=== PATIENT | female | born 1955 | race Caucasian/White ===

== ENCOUNTER → 2018-05-14 | Outpatient (CLI) | payer MEDICARE | END | disposition home or self-care (01) | LOC: KCIC MAMMO 12:14 | DX: Z12.31 Encounter for screening mammogram for malignant neoplasm of breast (principal) | CPT/HCPCS: 77063; 77067 ==

== ENCOUNTER → 2019-04-20 | Day surgery (SDC) | payer MEDICARE, OTHER ==
[~2019-04-20] MED LIST: AMLO10TA8 PO; BUSP15TA PO; CALC600T23 PO; CHOL10003 PO; CLON1TAB11 PO; DOCU100C28 PO; ESZO3TAB28 PO; FAMO40TA4 PO; IV RINGERS,LACTATED 1000ML 1,000 ML IV SCH; LAMO100T5 PO; LOSA100T14 PO; OMEP20CA10 PO; PROPOFOL 40 ML IV ONE
[2019-04-20 07:50] VITALS: BP 153/70
--- NOTE | 2019-04-21 16:06 | PATHOLOGY ---
[facility] Accession Number: [id number] . 01 Material submitted: . rectum - RECTAL POLYP . 01 Clinical history: . Hx colon polyps . 02 Diagnosis: Colorectal biopsy, rectal polyp: - Hyperplastic polyp. (JPM:riri; 04/21/2019) QMS/04/21/2019 . 02 Comment: There are no adenomatous changes or evidence of malignancy. . 02 Electronically signed: . Robert Hicks MD, Pathologist NPI- [id number] . 01 Gross description: . Received in formalin labeled "Clarissa Swain, rectal polyp," is a 0.5 x 0.4 x 0.4 cm polypoid piece of stock soft tissue. The margin is inked and the tissue is sectioned perpendicular to the margin and submitted in its entirely in cassette A1. (TSD; 04/20/2019) TOB/TOB . 02 Pathologist provided ICD-10: K62.1 . 02 CPT . 006146 Specimen Comment: A courtesy copy of this report has been sent to Specimen Comment: [phone], . Specimen Comment: Report sent to / DR SINGER Performed at: 01 [facility] [address], [place] [id number] MD Herrera Coffman MD Phone: [phone] Performed at: 02 [facility] [place] [address] [place], [place] [id number] MD Robert Hicks MD Phone: [phone]
== END | disposition home or self-care (01) ==
LOC: SURG 05:57
PROVIDERS: ATTEND Internal Medicine Gastroenterology
DX: Z12.11 Encounter for screening for malignant neoplasm of colon (principal); K62.1 Rectal polyp; K57.30 Diverticulosis of large intestine without perforation or abscess without bleeding; K64.0 First degree hemorrhoids; F41.9 Anxiety disorder, unspecified; K21.9 Gastro-esophageal reflux disease without esophagitis; I10 Essential (primary) hypertension; Z86.010 Personal history of colon polyps; Z80.0 Family history of malignant neoplasm of digestive organs; Z90.710 Acquired absence of both cervix and uterus; Z98.890 Other specified postprocedural states; Z98.51 Tubal ligation status
CPT/HCPCS: 45385; 88305; J2704; 45380

== ENCOUNTER → 2020-08-08 | Outpatient (CLI) | payer MEDICARE, OTHER ==
[2019-04-20 07:50] VITALS: BP 153/70
[~2020-08-08] MED LIST changes: -CLON1TAB11 PO; +CLONAZEPAM1 MG PO; -IV RINGERS,LACTATED 1000ML 1,000 ML IV SCH; -OMEP20CA10 PO; +OMEP20CA16 PO; -PROPOFOL 40 ML IV ONE
--- NOTE | 2020-08-08 15:41 | KCIC ---
Bilateral digital screening mammograms with 3-D tomosynthesis: Reason for examination: Routine screening. Comparison is made to previous studies dated back to 04/03/2016. Bilateral mammograms in CC and oblique projections were obtained with 2-D imaging and 3-D tomosynthesis imaging on a Siemens Inspiration unit and reviewed on the workstation. Interpretation was made with the benefit of CAD. The skin and nipples show no abnormalities. No abnormal axillary lymph nodes are seen. The breast parenchyma shows scattered fatty and fibroglandular density. (Breast density: Category B.) There continues to be some patchy asymmetry in the upper outer quadrant of the left breast which is unchanged. There continue to be small nodular parenchymal densities which are stable. There are no new dominant masses, suspicious calcifications or architectural distortion. Impression: No evidence of malignancy. Recommend routine screening. BI-RAD Category 2: Benign. "Our facility is accredited by the [employer] Mammography Program." This patient's information has been entered into a reminder system for the patient to be notified with the results of her examination and a target date for the next mammogram. Electronically signed by: Fabienne Sharma MD (08/08/2020 3:38 PM) [id number]
== END | disposition home or self-care (01) ==
LOC: KCIC MAMMO 12:35
PROVIDERS: ATTEND Family Medicine
DX: Z12.31 Encounter for screening mammogram for malignant neoplasm of breast (principal)
CPT/HCPCS: 77063; 77067

== ENCOUNTER 2020-12-02 07:43 | Inpatient (IN) | payer MEDICARE, OTHER ==
[~2020-12-02] VITALS: Ht 157.5 cm; Wt 53.5 kg
[~2020-12-02 07:43] MED LIST changes: +AMLO-187 PO; -AMLO10TA8 PO
--- NOTE | 2020-12-02 10:04 | RAD ---
EXAM: Head and cervical spine CT without contrast. HISTORY: Fall. Pain. TECHNIQUE: Computed tomographic images of the head and cervical spine were obtained without contrast. *One or more of the following individualized dose reduction techniques were utilized for this examina tion: 1. Automated exposure control. 2. Adjustment of the mA and/or kV according to patient size. 3. Use of iterative reconstruction technique. COMPARISON: None. FINDINGS: Head: There is an acute on subacute subdural hematoma along the right cerebral convexity measuring ap proximately 1.6 cm in maximum thickness. There is also hyperdensity within an increased left frontal extra-axial space which is greater than expected for a cortical vessel and likely due to a small acut e on chronic subdural hematoma measuring 7 mm in maximum thickness. There is no mass effect or midlin e shift. There is no hydrocephalus. There is encephalomalacia within the right frontal lobe likely due to chronic infarction or the seque la of remote hemorrhage. There are bilateral cerebral white matter changes, likely due to chronic sma ll vessel disease. There is cerebral volume loss. The orbits and visualized paranasal sinuses mastoid air cells are unremarkable. There is no calvarial lesion. Cervical spine: There is cervical kyphosis. There is no significant listhesis. There is multilevel en dplate remodeling. There is multilevel facet and uncovertebral arthropathy. No displaced fracture is seen. There is calcified atherosclerotic plaque within the carotid bifurcations. There is a dilated l eft internal jugular vein. There is pulmonary emphysema. The combination of degenerative changes resu lts in mild left foraminal stenosis at C3-C4, mild bilateral foraminal stenosis at C4-C5, mild bilate ral foraminal stenosis at C5-C6 and mild right foraminal stenosis at C6-C7. IMPRESSION: 1. Acute on subacute subdural hematoma along the right cerebral convexity measuring 1.6 cm and suspec kenn acute on chronic subdural hematoma along the anterior left cerebral convexity measuring 0.7 cm. T here is no mass effect or midline shift. 2. Encephalomalacia within the right frontal lobe likely due to chronic infarction or remote trauma. 3. Bilateral cerebral white matter changes, likely due to chronic small vessel disease. 4. Cerebral volume loss. 5. Multilevel degenerative change involving the cervical spine, described in detail above. There is n o evidence of acute cervical spine trauma. Findings were discussed with Dr. Carranza in the ED at 1000 hours on 12/02/2020. FOR INTERNAL CODING PURPOSES RESULT CODE: (C) Electronically signed by: Suellen Tamez MD (12/02/2020 10:02 AM) [facility]
--- NOTE | 2020-12-02 10:38 | PHYS DOC ---
Past Medical History Past Medical History: Schizophrenia Additional Past Medical Histor: encephalopathy, freq falls, post concussional syndrome, subdural hem, parki Past Surgical History: Other Additional Past Surgical Histo: unkown. Smoking Status: Never Smoker Alcohol Use: None General Adult EDM: Chief Complaint: MECHANICAL FALL HPI: HPI: Patient is a 65 year old female who has a history of frequent fall, history of subdural hematoma, wear protective helmet, did fall again this morning, hit the back of her head on the ground. Patient, headache neck pain. Patient denies any back pain, no hip pain, no abdominal pain, no extremity pain. EMS brought her here for evaluation from the shelter. Review of Systems: Review of Systems: Constitutional: Denies fever or chills. [] Eyes: Denies change in visual acuity. [] HENT: Denies nasal congestion or sore throat. [] Respiratory: Denies cough or shortness of breath. [] Cardiovascular: Denies chest pain or edema. [] GI: Denies abdominal pain, nausea, vomiting, bloody stools or diarrhea. [] : Denies dysuria. [] Musculoskeletal: Denies back pain or joint pain. [] Integument: Denies rash. [] Neurologic: Positive for headache, no focal weakness or numbness. Endocrine: Denies polyuria or polydipsia. [] Lymphatic: Denies swollen glands. [] Psychiatric: Denies depression or anxiety. [] Heart Score: Risk Factors: Risk Factors: DM, Current or recent (<one month) smoker, HTN, HLP, family history of CAD, obesity. Risk Scores: Score 0 - 3: 2.5% MACE over next 6 weeks - Discharge Home Score 4 - 6: 20.3% MACE over next 6 weeks - Admit for Clinical Observation Score 7 - 10: 72.7% MACE over next 6 weeks - Early Invasive Strategies Allergies: Allergies: Allergies Coded Allergies Type Severity Reaction Last Updated Verified No Known Drug Allergies 04/20/19 No Physical Exam: PE: Constitutional: Well developed, well nourished, no acute distress, non-toxic appearance. [] HENT: Normocephalic, small scalp hematoma on right occipital area, bilateral external ears normal, oropharynx moist, no oral exudates, nose normal. [] Eyes: PERRLA, EOMI, conjunctiva normal, no discharge. [] Neck: Normal range of motion, no tenderness, supple, no stridor. [] Cardiovascular:Heart rate regular rhythm, no murmur [] Lungs & Thorax: Bilateral breath sounds clear to auscultation [] Abdomen: Bowel sounds normal, soft, no tenderness, no masses, no pulsatile masses. [] Skin: Warm, dry, no erythema, no rash. [] Back: No tenderness, no CVA tenderness. [] Extremities: No tenderness, no cyanosis, no clubbing, ROM intact, no edema. [] Neurologic: Alert and oriented X 3, normal motor function, normal sensory function, no focal deficits noted. [] Psychologic: Affect normal, judgement normal, mood normal. [] Current Patient Data: Labs: Laboratory Tests Test 12/02/20 11:15 12/02/20 12:43 White Blood Count 8.7 x10^3/uL Red Blood Count 4.33 x10^6/uL Hemoglobin 12.8 g/dL Hematocrit 38.4 % Mean Corpuscular Volume 89 fL Mean Corpuscular Hemoglobin 30 pg Mean Corpuscular Hemoglobin Concent 33 g/dL Red Cell Distribution Width 16.3 % Platelet Count 420 x10^3/uL Neutrophils (%) (Auto) 59 % Lymphocytes (%) (Auto) 31 % Monocytes (%) (Auto) 7 % Eosinophils (%) (Auto) 1 % Basophils (%) (Auto) 1 % Neutrophils # (Auto) 5.2 x10^3/uL Lymphocytes # (Auto) 2.7 x10^3/uL Monocytes # (Auto) 0.6 x10^3/uL Eosinophils # (Auto) 0.1 x10^3/uL Basophils # (Auto) 0.1 x10^3/uL Sodium Level 141 mmol/L Potassium Level 3.6 mmol/L Chloride Level 105 mmol/L Carbon Dioxide Level 27 mmol/L Anion Gap 9 Blood Urea Nitrogen 9 mg/dL Creatinine 1.0 mg/dL Estimated GFR (Cockcroft-Gault) 55.5 BUN/Creatinine Ratio 9 Glucose Level 101 mg/dL Calcium Level 9.5 mg/dL Total Bilirubin 0.4 mg/dL Aspartate Amino Transf (AST/SGOT) 23 U/L Alanine Aminotransferase (ALT/SGPT) 26 U/L Alkaline Phosphatase 77 U/L Total Protein 7.5 g/dL Albumin 3.5 g/dL Albumin/Globulin Ratio 0.9 Urine Collection Type Unknown Urine Color Yellow Urine Clarity Clear Urine pH 7.5 Urine Specific [place] <=1.005 Urine Protein Negative mg/dL Urine Glucose (UA) Negative mg/dL Urine Ketones (Stick) Negative mg/dL Urine Blood Negative Urine Nitrite Negative Urine Bilirubin Negative Urine Urobilinogen Dipstick 0.2 mg/dL Urine Leukocyte Esterase Trace Urine RBC 1-2 /HPF Urine WBC 1-4 /HPF Urine Squamous Epithelial Cells Few /LPF Urine Bacteria 0 /HPF Vital Signs: Vital Signs Date Time Temp Pulse Resp B/P (MAP) Pulse Ox O2 Delivery O2 Flow Rate FiO2 12/02/20 08:59 98.9 70 16 155/72 (99) 95 Room Air 98.9 EKG: EKG: [] Radiology/Procedures: Radiology/Procedures: [] [address] [place] [address] IMAGING REPORT Signed PATIENT: CARLTON LUGO ACCOUNT: [id number] : 1955 LOCATION: ER AGE: 65 SEX: F EXAM STATUS: REG ER ORD. PHYSICIAN: DARCI GARCIA DO REASON: fell, head injury PROCEDURE: CT HEAD AND CERVICAL SPINE WO EXAM: Head and cervical spine CT without contrast. HISTORY: Fall. Pain. TECHNIQUE: Computed tomographic images of the head and cervical spine were obtained without contrast. *One or more of the following individualized dose reduction techniques were utilized for this examination: 1. Automated exposure control. 2. Adjustment of the mA and/or kV according to patient size. 3. Use of iterative reconstruction technique. COMPARISON: None. FINDINGS: Head: There is an acute on subacute subdural hematoma along the right cerebral convexity measuring approximately 1.6 cm in maximum thickness. There is also hyperdensity within an increased left frontal extra-axial space which is greater than expected for a cortical vessel and likely due to a small acute on chronic subdural hematoma measuring 7 mm in maximum thickness. There is no mass effect or midline shift. There is no hydrocephalus. There is encephalomalacia within the right frontal lobe likely due to chronic infarction or the sequela of remote hemorrhage. There are bilateral cerebral white matter changes, likely due to chronic small vessel disease. There is cerebral volume loss. The orbits and visualized paranasal sinuses mastoid air cells are unremarkable. There is no calvarial lesion. Cervical spine: There is cervical kyphosis. There is no significant listhesis. There is multilevel endplate remodeling. There is multilevel facet and uncovertebral arthropathy. No displaced fracture is seen. There is calcified atherosclerotic plaque within the carotid bifurcations. There is a dilated left internal jugular vein. There is pulmonary emphysema. The combination of degenerative changes results in mild left foraminal stenosis at C3-C4, mild bilateral foraminal stenosis at C4-C5, mild bilateral foraminal stenosis at C5- C6 and mild right foraminal stenosis at C6-C7. IMPRESSION: 1. Acute on subacute subdural hematoma along the right cerebral convexity measuring 1.6 cm and suspected acute on chronic subdural hematoma along the anterior left cerebral convexity measuring 0.7 cm. There is no mass effect or midline shift. 2. Encephalomalacia within the right frontal lobe likely due to chronic infarction or remote trauma. 3. Bilateral cerebral white matter changes, likely due to chronic small vessel disease. 4. Cerebral volume loss. 5. Multilevel degenerative change involving the cervical spine, described in detail above. There is no evidence of acute cervical spine trauma. Findings were discussed with Dr. Garcia in the ED at 1000 hours on 12/02/2020. FOR INTERNAL CODING PURPOSES RESULT CODE: (C) Electronically signed by: Suellen Hay MD (12/02/2020 10:02 AM) [facility] DICTATED and SIGNED BY: SUELLEN HAY MD DATE: 12/02/20 [id number] 0 Course & Med Decision Making: Course & Med Decision Making Pertinent Labs and Imaging studies reviewed. (See chart for details) Patient is a 65-year-old female with a history of frequent fall, she fell again today, was brought here by EMS from shelter. CT scan of the head and C- spine show acute subdural hematoma on chronic subdural hematoma, consulted Dr. Odin Almeida, neurosurgeon who recommended to admit patient to ICU, CT scan her head tomorrow. Dragon Disclaimer: Dragon Disclaimer: This electronic medical record was generated, in whole or in part, using a voice recognition dictation system. Departure Departure Impression: Primary Impression: Subdural hematoma Additional Impression: Frequent falls Disposition: 09 ADMITTED INPT THIS HOSP Admitting Physician: NERIS (Dr. Hernandez) Condition: STABLE Referrals: MIKE HERRERA (PCP) DARCI GARCIA DO Dec 02, 2020 10:38
[2020-12-02 11:25] LABS: BASO # 0.1 x10^3/uL (0.0-0.2); BASO % 1 % (0-3); EOS # 0.1 x10^3/uL (0.0-0.7); EOS % 1 % (0-3); HEMATOCRIT 38.4 % (36.0-47.0); HEMOGLOBIN 12.8 g/dL (12.0-15.5); LYMPH # 2.7 x10^3/uL (1.0-4.8); LYMPH % 31 % (24-48); MEAN CORPUSCULAR HEMOGLOBIN 30 pg (25-35); MEAN CORPUSCULAR HGB CONC 33 g/dL (31-37); MEAN CORPUSCULAR VOLUME 89 fL (79-100); MONO # 0.6 x10^3/uL (0.0-1.1); MONO % 7 % (0-9); NEUT # 5.2 x10^3/uL (1.8-7.7); NEUT % 59 % (31-73); PLATELET COUNT 420 x10^3/uL (140-400); RED BLOOD COUNT 4.33 x10^6/uL (3.50-5.40); RED CELL DISTRIBUTION WIDTH 16.3 % (11.5-14.5); WHITE BLOOD COUNT 8.7 x10^3/uL (4.0-11.0)
[2020-12-02 11:38] LABS: CALCIUM 9.5 mg/dL (8.5-10.1); GFR 55.5; POTASSIUM 3.6 mmol/L (3.5-5.1)
[2020-12-02 11:43] LABS: ALBUMIN 3.5 g/dL (3.4-5.0); ALBUMIN/GLOBULIN RATIO 0.9 (1.0-1.7); TOTAL BILIRUBIN 0.4 mg/dL (0.2-1.0); TOTAL PROTEIN 7.5 g/dL (6.4-8.2)
--- NOTE | 2020-12-02 12:07 | HP ---
ADMIT DATE: 12/02/2020 CHIEF COMPLAINT: Fall. HISTORY OF PRESENT ILLNESS: The patient is a pleasant 65-year-old female who wears a protective helmet, I believe she has schizophrenia and previous history of postconcussion syndrome and previous subdural hematoma. Once again, she fell and now has a little bit of a headache. We did some imaging. She does have a small subdural hematoma. We have consulted Dr. Almeida. He would like her to go to the ICU and they are going to rescan her tomorrow. PAST MEDICAL HISTORY: Schizophrenia, encephalopathy, frequent falls, postconcussion syndrome, subdural hematoma, Parkinson's. ALLERGIES: None. FAMILY HISTORY: Parkinson's. SOCIAL HISTORY: She does not drink, smoke or take drugs. MEDICATIONS: Reviewed, please refer to the MRAD. REVIEW OF SYSTEMS: GENERAL: No history of weight change, weakness or fevers. SKIN: No bruising, hair changes or rashes. EYES: No blurred, double or loss of vision. NOSE AND THROAT: No history of nosebleeds, hoarseness or sore throat. HEART: No history of palpitations, chest pain or shortness of breath on exertion. LUNGS: Denies cough, hemoptysis, wheezing or shortness of breath. GASTROINTESTINAL: Denies changes in appetite, nausea, vomiting, diarrhea or constipation. GENITOURINARY: No history of frequency, urgency, hesitancy or nocturia. NEUROLOGIC: Denies history of numbness, tingling, tremor or weakness. PSYCHIATRIC: No history of panic, anxiety or depression. ENDOCRINE: No history of heat or cold intolerance, polyuria or polydipsia. EXTREMITIES: Denies muscle weakness, joint pain, pain on walking or stiffness. PHYSICAL EXAMINATION: VITALS: Within normal limits and are stable. GENERAL: No apparent distress. Alert and oriented. HEENT: She has a slight bump on the right side of her head. EYES: Extraocular muscles are intact, pupils are equally round and reactive to light and accommodation MUSCULOSKELETAL: Well developed, well nourished, good range of motion ENDOCRINE: No thyromegaly was palpated LYMPHATICS: No cervical chain or axillary nodes were noted HEMATOPOIETIC: No bruising NECK: Supple, no JVD, no thyromegaly was noted. LUNGS: Clear to auscultation in all lung manning without rhonchi or wheezing. HEART: RRR, S1, S2 present. Peripheral pulses intact, no obvious murmurs were noted. ABDOMEN: Soft, nontender. Positive bowel sounds no organomegaly, normal bowel sounds. EXTREMITIES: Without any cyanosis, clubbing, or edema. Pedal pulses intact, Homans sign is negative. NEUROLOGIC: Normal speech, normal tone. A and O x3, moves all extremities, no obvious focal deficits. PSYCHIATRIC: Normal affect, normal mood. Stable. SKIN: No ulcerations or rashes, good skin turgor, no jaundice. VASCULAR: Good capillary refill, neurovascular bundle appears to be intact. LABORATORY DATA: Normal. Electrolytes are normal. CT of the head shows an acute on subacute subdural hematoma, it is about 1.6 cm on the right cerebral convexity. ASSESSMENT AND PLAN: Falls and subdural hematoma. The patient will be admitted to the ICU. Neuro checks, home meds, DVT prophylaxis, full code. Consult Dr. Almeida. He is going to see the patient this evening, probably repeat her CT in a day or two. WIMLER SPEAR DO DR: HOMAR/sharon JOB#: [id number] / [id number]
[2020-12-02 12:53] LABS: BILIRUBIN,URINE NEGATIVE (NEG); CLARITY,URINE CLEAR; COLOR,URINE YELLOW; NITRITE,URINE NEGATIVE (NEG); PH,URINE 7.5 (<5.0-8.0); PROTEIN,URINE NEGATIVE (NEG-TRACE); UROBILINOGEN,URINE 0.2 mg/dL (0.2 mg/dL)
[2020-12-02 13:02] LABS: BACTERIA,URINE 0 /HPF (0-FEW)
[2020-12-02] MEDS ORDERED: AMLO-186 PO (18:34)
[2020-12-02] MEDS ORDERED: BENZ1TAB5 PO (18:34)
[2020-12-02] MEDS ORDERED: ACET325T21 PO (18:34)
[2020-12-02] MEDS ORDERED: LEVO25TA4 PO (18:34)
[2020-12-02] MEDS ORDERED: ATOR40TA59 PO (18:34)
[2020-12-02] MEDS ORDERED: MELA3TAB4 PO (18:34)
[2020-12-02] MEDS ORDERED: ONDA-84 PO (18:34)
[2020-12-02] MEDS ORDERED: TRAZ-118 PO (18:34)
[2020-12-02] MEDS ORDERED: FLUO20CA20 PO (18:34)
[2020-12-02] MEDS ORDERED: POLY17PO29 PO (18:34)
--- NOTE | 2020-12-02 22:00 | NUR ---
Patient arrived to CVICU from the ED-Hold to room 266. Report received from DANICA Torres from the ED. No fluids infusing. Answers questions but can be inappropriate but can follow commands and easily directed. VSS. Denies pain. Helmet remained in place. Spastic movements. Gait belt available. Will continue to monitor.
[2020-12-03] VITALS (18 sets, daily range): BP systolic 114–185; BP diastolic 64–93
--- NOTE | 2020-12-03 08:14 | PDOC ---
[employer] PROGRESS NOTE Date of Service DOS: DATE: 12/03/20 TIME: 08:09 Chief Complaint Chief Complaint A/P: Acute on subacute subdural hematoma - right cerebral convexity measuring 1.6 cm and subdural hematoma anterior left cerebral convexity measuring 0.7 cm. no mass effect History of Present Illness History of Present Illness Ms Swain is a 65yo F fpc resident of [facility] w/ PMHx Schizophrenia, frequent falls, post concussion syndrome who presents on 12/02/2020 after a fall and worsening confusion. Oriented to person at baseline. She does wear a protective helmet due to her frequency of falls. CT head revealed acute 1.6cm right SDH and left SDH as well. Admitted to ICU for further care. Repeat CT head stable. She is still wearing a helmet. She knows her date of has responded to myself and nursing staff with different first names. No shortness of breath or cough no chest pain. Vitals/I&O Vitals/I&O: Vital Signs Date Time Temp Pulse Resp B/P (MAP) Pulse Ox O2 Delivery O2 Flow Rate FiO2 12/03/20 07:30 98.1 72 20 185/76 (112) 97 Room Air 98.1 I & O 12/02/20 12/02/20 12/03/20 15:00 23:00 07:00 Intake Total 200 ml Balance 200 ml Labs Labs: Laboratory Tests Test 12/02/20 11:15 12/02/20 12:43 White Blood Count 8.7 x10^3/uL (4.0-11.0) Red Blood Count 4.33 x10^6/uL (3.50-5.40) Hemoglobin 12.8 g/dL (12.0-15.5) Hematocrit 38.4 % (36.0-47.0) Mean Corpuscular Volume 89 fL (79-100) Mean Corpuscular Hemoglobin 30 pg (25-35) Mean Corpuscular Hemoglobin Concent 33 g/dL (31-37) Red Cell Distribution Width 16.3 % (11.5-14.5) Platelet Count 420 x10^3/uL (140-400) Neutrophils (%) (Auto) 59 % (31-73) Lymphocytes (%) (Auto) 31 % (24-48) Monocytes (%) (Auto) 7 % (0-9) Eosinophils (%) (Auto) 1 % (0-3) Basophils (%) (Auto) 1 % (0-3) Neutrophils # (Auto) 5.2 x10^3/uL (1.8-7.7) Lymphocytes # (Auto) 2.7 x10^3/uL (1.0-4.8) Monocytes # (Auto) 0.6 x10^3/uL (0.0-1.1) Eosinophils # (Auto) 0.1 x10^3/uL (0.0-0.7) Basophils # (Auto) 0.1 x10^3/uL (0.0-0.2) Sodium Level 141 mmol/L (136-145) Potassium Level 3.6 mmol/L (3.5-5.1) Chloride Level 105 mmol/L (98-107) Carbon Dioxide Level 27 mmol/L (21-32) Anion Gap 9 (6-14) Blood Urea Nitrogen 9 mg/dL (7-20) Creatinine 1.0 mg/dL (0.6-1.0) Estimated GFR (Cockcroft-Gault) 55.5 BUN/Creatinine Ratio 9 (6-20) Glucose Level 101 mg/dL (70-99) Calcium Level 9.5 mg/dL (8.5-10.1) Total Bilirubin 0.4 mg/dL (0.2-1.0) Aspartate Amino Transf (AST/SGOT) 23 U/L (15-37) Alanine Aminotransferase (ALT/SGPT) 26 U/L (14-59) Alkaline Phosphatase 77 U/L (46-116) Total Protein 7.5 g/dL (6.4-8.2) Albumin 3.5 g/dL (3.4-5.0) Albumin/Globulin Ratio 0.9 (1.0-1.7) Urine Collection Type Unknown Urine Color Yellow Urine Clarity Clear Urine pH 7.5 (<5.0-8.0) Urine Specific [place] <=1.005 (1.000-1.030) Urine Protein Negative mg/dL (NEG-TRACE) Urine Glucose (UA) Negative mg/dL (NEG) Urine Ketones (Stick) Negative mg/dL (NEG) Urine Blood Negative (NEG) Urine Nitrite Negative (NEG) Urine Bilirubin Negative (NEG) Urine Urobilinogen Dipstick 0.2 mg/dL (0.2 mg/dL) Urine Leukocyte Esterase Trace (NEG) Urine RBC 1-2 /HPF (0-2) Urine WBC 1-4 /HPF (0-4) Urine Squamous Epithelial Cells Few /LPF Urine Bacteria 0 /HPF (0-FEW) Assessment and Plan Assessmemt and Plan Problems Medical Problems: (1) Frequent falls Status: Acute (2) Subdural hematoma Status: Acute Comment Review of Relevant I have reviewed the following items junaid (where applicable) has been applied. Justifications for Admission Other Justification KITTY AMARO MD Dec 03, 2020 08:14
--- NOTE | 2020-12-03 09:16 | RAD ---
EXAM: Head CT without contrast. HISTORY: Subdural hematoma follow-up. TECHNIQUE: Computed tomographic images of the head were obtained without contrast. *One or more of the following individualized dose reduction techniques were utilized for this examina tion: 1. Automated exposure control. 2. Adjustment of the mA and/or kV according to patient size. 3. Use of iterative reconstruction technique. COMPARISON: 12/02/2020. FINDINGS: There has been no significant change in the size or attenuation of a suspected mixed acute on subacute subdural hematoma along the right cerebral convexity measuring 1.6 cm in maximum thicknes s. There is linear hyperdensity within increased left frontal extra-axial space which is not typical in appearance for a cortical vessel and likely due to a stable acute on chronic subdural hematoma farhad suring 0.6 mm in thickness. There is no mass effect or midline shift. There is no hydrocephalus. There is encephalomalacia within the anterior inferior right frontal lobe and right temporal lobe lik allie due to the sequela of remote trauma, or less likely, chronic infarction. There are scattered area s of hypodensity within the cerebral white matter, likely due to chronic small vessel disease. There is volume loss. The orbits and visualized paranasal sinuses mastoid air cells are unremarkable. IMPRESSION: 1. No significant change in a suspected acute on subacute subdural hematoma along the right cerebral convexity measuring 1.6 cm and suspected small acute on chronic subdural hematoma along the left cere bral convexity measuring 0.6 mm. There is no mass effect or midline shift. 2. Encephalomalacia within the right frontal and temporal lobes, the distribution of which favors virgilio nges due to remote trauma. The possibility of changes due to chronic infarction is not completely exc luded. 3. Bilateral cerebral white matter changes, likely due to chronic small vessel disease. 4. Cerebral volume loss. Electronically signed by: Suellen Tamez MD (12/03/2020 9:13 AM) [id number]
[2020-12-03] MEDS ORDERED: ONDANSETRON ODT 4 MG TAB.RAPDIS. PO PRN (11:15)
[2020-12-03] MEDS ORDERED: POLYETHYLENE GLYCOL 3350 17 GM PACKET. PO PRN (11:15)
[2020-12-03] MEDS ORDERED: ACETAMINOPHEN 325 MG TABLET. PO PRN (11:15)
[2020-12-03] MEDS: DOCUSATE SODIUM 100 MG CAPSULE. PO SCH (12:31)
[2020-12-03] MEDS: LEVOTHYROXINE 25 MCG TABLET. PO SCH (12:31)
[2020-12-03] MEDS: FLUoxetine HCL 20 MG CAPSULE PO SCH (12:31)
[2020-12-03] MEDS: lamoTRIgine 100 MG TABLET. PO SCH (12:31)
[2020-12-03] MEDS: PANTOPRAZOLE 40 MG TABLET.DR. PO SCH (12:31)
[2020-12-03] MEDS: BENZTROPINE MESYLATE 1 MG TABLET. PO SCH (12:32)
--- NOTE | 2020-12-03 14:27 | NUR ---
SS following for discharge planning. SS reviewed pt chart and discussed with pt RN. Pt is skilled rehabilitation resident from [facility], ; fax [phone]. Pt is currently on room air. COVID19 test pending. PT/OT ordered. Pt is able to return skilled when medically ready. SS will continue to follow for discharge planning.
--- NOTE | 2020-12-03 14:31 | PDOC ---
Provider Note Date of Service: DATE: 12/03/20 TIME: 14:28 Provider Note patient seen and examined history of frequent falls confused on exam, follows commands, BURK denies pain CT with acute on subacute subdural hematoma along the right cerebral convexity measuring 1.6 cm and suspected small acute on chronic subdural hematoma along the left cerebral convexity measuring 0.6 mm. There is no mass effect or midline shift we will make arrangements for follow up CT in a week D/W RN Justifications for Admission Other Justification DILLON VALLES MD Dec 03, 2020 14:31
[2020-12-03] MEDS: ATORVASTATIN CALCIUM 40 MG TABLET. PO SCH (21:20)
[2020-12-03] MEDS: traZODone 50 MG TABLET. PO SCH (21:20)
[2020-12-03] MEDS: PSYLLIUM HUSK (SUGAR FREE) 1 PKT PACKET PO SCH (21:20)
[2020-12-04] MEDS: LEVOTHYROXINE 25 MCG TABLET. PO SCH (06:25)
[2020-12-04] MEDS: PANTOPRAZOLE 40 MG TABLET.DR. PO SCH (07:30)
--- NOTE | 2020-12-04 07:54 | PDOC ---
[employer] PROGRESS NOTE Date of Service DOS: DATE: 12/04/20 TIME: 07:54 Chief Complaint Chief Complaint A/P: Acute on subacute subdural hematoma - right cerebral convexity measuring 1.6 cm and subdural hematoma anterior left cerebral convexity measuring 0.7 cm. 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 Oriented to person at baseline. She does wear a protective helmet due to her frequency of falls. CT head revealed acute 1.6cm right SDH and left SDH as well. Admitted to ICU for further care. 12/03: Repeat CT head stable. She is still wearing a helmet. She knows her date of has responded to myself and nursing staff with different first names. No shortness of breath or cough no chest pain. In good spirits. Wearing her helmet. Afebrile no shortness of breath or chest pain. Oriented to person. Vitals/I&O Vitals/I&O: Vital Signs Date Time Temp Pulse Resp B/P (MAP) Pulse Ox O2 Delivery O2 Flow Rate FiO2 12/04/20 03:00 56 16 Room Air 12/03/20 23:00 98.2 159/85 (109) 96 98.2 I & O 12/03/20 12/03/20 12/04/20 15:00 23:00 07:00 Intake Total 200 ml 300 ml 180 ml Output Total 125 ml Balance 200 ml 300 ml 55 ml Physical Exam General: Alert, Oriented X3, Cooperative Heart: Regular rate, Normal S1, Normal S2 Lungs: Clear Abdomen: Normal bowel sounds, Soft Extremities: No clubbing, No cyanosis Skin: No rashes, No breakdown Assessment and Plan Assessmemt and Plan Problems Medical Problems: (1) Frequent falls Status: Acute (2) Subdural hematoma Status: Acute Comment Review of Relevant I have reviewed the following items junaid (where applicable) has been applied. Medications: Current Medications Medications (Trade) Dose Ordered Sig/Win Route PRN Reason Start Time Stop Time Status Last Admin Dose Admin Amlodipine Besylate (Norvasc) 5 mg DAILY PO 12/03/20 12:00 12/03/20 12:31 Atorvastatin Calcium (Lipitor) 40 mg HS PO 12/03/20 21:00 12/03/20 21:20 Benztropine Mesylate (Cogentin) 1 mg DAILY PO 12/03/20 12:00 12/03/20 12:32 Docusate Sodium (Colace) 100 mg DAILY PO 12/03/20 12:00 12/03/20 12:31 Fluoxetine HCl (PROzac) 20 mg DAILY PO 12/03/20 12:00 12/03/20 12:31 Lamotrigine (LaMICtal) 300 mg DAILY PO 12/03/20 12:00 12/03/20 12:31 Levothyroxine Sodium (Synthroid) 25 mcg DAILY06 PO 12/03/20 12:00 12/04/20 06:25 Trazodone HCl (Desyrel) 50 mg QHS PO 12/03/20 21:00 12/03/20 21:20 Pantoprazole Sodium (Protonix) 40 mg DAILYAC PO 12/03/20 12:00 12/03/20 12:31 Psyllium Hydrophilic Mucilloid (Metamucil Fiber Packet) 1 pkt QHS PO 12/03/20 21:00 12/03/20 21:20 Justifications for Admission Other Justification KITTY AMARO MD Dec 04, 2020 07:54
[2020-12-04 09:20] VITALS: BP 162/80
[2020-12-04] MEDS: DOCUSATE SODIUM 100 MG CAPSULE. PO SCH (09:35)
[2020-12-04] MEDS: lamoTRIgine 100 MG TABLET. PO SCH (09:35)
[2020-12-04] MEDS: BENZTROPINE MESYLATE 1 MG TABLET. PO SCH (09:35)
[2020-12-04] MEDS: FLUoxetine HCL 20 MG CAPSULE PO SCH (09:35)
--- NOTE | 2020-12-04 11:26 | NUR ---
SS following up with discharge planning. SS reviewed pt chart and discussed with pt RN. Pt is currently on room air. COVID19 pending. PT/OT ordered and documented no needs. SS phoned and faxed updated clinical to [facility], ; fax [phone]. SS will continue to follow for discharge planning.
[2020-12-04 14:05] VITALS: BP 144/71
--- NOTE | 2020-12-04 18:24 | NUR ---
Received patient transfer from [facility], will continue to monitor patient. Bed alarm on.
[2020-12-04 19:25] VITALS: BP 121/58
--- NOTE | 2020-12-04 20:04 | NUR ---
Late entry: phone report to Wilma(?sp)RN w transfer per [facility] to 4th floor. #2 covid not resulted at this time. Aware that will be able to go back to care facility when resulted. Assist x1 to be up and x2 to return from commode to bed. Up several times w/o stooling or urine. Briefs cahnged x3 for sudden undetected urine on patients part. Condition w/o overt bleed. VSS/no overt changes in neuro status
[2020-12-04] MEDS: PSYLLIUM HUSK (SUGAR FREE) 1 PKT PACKET PO SCH (21:09)
[2020-12-04] MEDS: ATORVASTATIN CALCIUM 40 MG TABLET. PO SCH (21:09)
[2020-12-04] MEDS: traZODone 50 MG TABLET. PO SCH (21:09)
[2020-12-04 23:35] VITALS: BP 153/60
[2020-12-05 03:12] VITALS: BP 143/53
[2020-12-05] MEDS: LEVOTHYROXINE 25 MCG TABLET. PO SCH (05:36)
[2020-12-05] MEDS: PANTOPRAZOLE 40 MG TABLET.DR. PO SCH (05:36)
[2020-12-05 07:00] VITALS: BP 138/49
[2020-12-05] MEDS: DOCUSATE SODIUM 100 MG CAPSULE. PO SCH (08:46)
[2020-12-05] MEDS: BENZTROPINE MESYLATE 1 MG TABLET. PO SCH (08:46)
[2020-12-05] MEDS: FLUoxetine HCL 20 MG CAPSULE PO SCH (08:46)
[2020-12-05] MEDS: lamoTRIgine 100 MG TABLET. PO SCH (08:46)
--- NOTE | 2020-12-05 10:16 | NUR ---
RONALDO following. Discussed with RN, pt from [facility] - from [facility] - only waiting on COVID to return to facility. RONALDO faxed negative COVID result to [facility]. Tentative transport time for 1500. RONALDO notified Dr. Harris, awaiting discharge orders. RONALDO will continue to follow. Addendum: 12/05/20 at 1548 by CARMEN HIGGINS At around 2pm, RONALDO contacted [facility] to have filler picker time pushed back as discharge orders were not yet in. Transportation changed to 1600. Discharge orders faxed. RN notified.
[2020-12-05 11:00] VITALS: BP 124/56
--- NOTE | 2020-12-05 14:35 | SNU/HH DC ---
DISCHARGE ORDERS DISCHARGE INFORMATION: DISCHARGE DATE: Dec 05, 2020 FINAL DIAGNOSIS Problems Medical Problems: (1) Frequent falls Status: Acute (2) Subdural hematoma Status: Acute CODE STATUS: Code Status: Full [facility]: SNF STAY <30 DAYS: Yes POST DISCHARGE ORDERS: ACTIVITY ORDERS: Resume previous activity WEIGHT BEARING STATUS: Full weight bearing DISCHARGE MEDICATIONS: Home Meds Reported Medications Trazodone Hcl (TRAZODONE HCL) 50 Mg Tablet, 1 TAB PO QHS, #30 TAB 1 Refill 12/02/20 Ondansetron Hcl (ONDANSETRON HCL) 4 Mg Tablet, 1 TAB PO PRN Q6HRS, #10 TAB 1 Refill 12/02/20 Polyethylene Glycol 3350 (MIRALAX) 17 Gm Powd.pack, 1 PACKET PO PRN DAILY PRN for CONSTIPATION for 2 Days, PACKET 0 Refills dissolve in water 12/02/20 Melatonin (MELATONIN) 3 Mg Tablet, 2 TAB PO QHS, #30 TAB 2 Refills 12/02/20 Levothyroxine Sodium (LEVOTHYROXINE SODIUM) 25 Mcg Tablet, 1 TAB PO DAILY, #30 TAB 5 Refills 12/02/20 Fluoxetine Hcl (FLUOXETINE HCL) 20 Mg Capsule, 1 CAP PO DAILY, #90 CAP 1 Refill 12/02/20 Benztropine Mesylate (BENZTROPINE MESYLATE) 1 Mg Tablet, 1 MG PO DAILY, TAB 12/02/20 Atorvastatin Calcium (ATORVASTATIN CALCIUM) 40 Mg Tablet, 40 MG PO HS for FOR CHOLESTEROL, #30 TAB 0 Refills 12/02/20 Amlodipine Besylate (AMLODIPINE BESYLATE) 5 Mg Tablet, 5 MG PO DAILY, TAB 12/02/20 Acetaminophen (ACETAMINOPHEN) 325 Mg Tablet, 2 TAB PO Q6HRS PRN for pain or fever for 30 Days, #30 TAB 0 Refills 12/02/20 Docusate Sodium (DOCUSATE SODIUM) 100 Mg Capsule, 1 CAP PO DAILY for NA, #30 CAP 04/20/19 Omeprazole (OMEPRAZOLE) 20 Mg Capsule.dr, 1 CAP PO DAILY for GERD, #30 CAP 5 Refills 04/20/19 Lamotrigine (LAMICTAL) 100 Mg Tablet, 300 MG PO DAILY for NA, TAB 04/20/19 Calcium Carbonate (CALCIUM CARBONATE) 600 Mg Tablet, 600 MG PO DAILY for VITAMIN, TAB 04/20/19 AMANDA LONGO MD Dec 05, 2020 14:35
--- NOTE | 2020-12-05 14:48 | PDOC3 ---
Discharge Summary Visit Information Date of Admission: Dec 02, 2020 Date of Discharge: Dec 05, 2020 Admitting Diagnosis Comment: Falls and subdural hematoma Final Diagnosis Problems Medical Problems: (1) Frequent falls Status: Acute (2) Subdural hematoma Status: Acute Acute on subacute subdural hematoma - right cerebral convexity measuring 1.6 cm and subdural hematoma anterior left cerebral convexity measuring 0.7 cm. 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 Oriented to person at baseline. She does wear a protective helmet due to her frequency of falls. CT head revealed acute 1.6cm right SDH and left SDH as well. Admitted to ICU for further care. 12/03: Repeat CT head stable. She is still wearing a helmet. She knows her date of has responded to myself and nursing staff with different first names. No shortness of breath or cough no chest pain. 12/04: In good spirits. Wearing her helmet. Afebrile no shortness of breath or chest pain. Oriented to person. 12/05: Patient in no acute distress. She was deemed appropriate for discharge from the neurosurgical standpoint of view with plans all repeating a CAT scan in about a week. No concerns voiced from nursing staff prior to discharge. She is hemodynamically stable Physical Exam General: Alert, Oriented X3, Cooperative Heart: Regular rate, Normal S1, Normal S2 Lungs: Clear Abdomen: Normal bowel sounds, Soft Extremities: No clubbing, No cyanosis Skin: No rashes, No breakdown Assessment Assessment [facility] [address] [place] [address] IMAGING REPORT Signed PATIENT: CARLTON LUGO ACCOUNT: [id number] : 1955 LOCATION: [facility] AGE: 65 SEX: F EXAM STATUS: ADM IN ORD. PHYSICIAN: DILLON VALLES MD REASON: f/u SDH PROCEDURE: CT HEAD WO CONTRAST EXAM: Head CT without contrast. HISTORY: Subdural hematoma follow-up. TECHNIQUE: Computed tomographic images of the head were obtained without contrast. *One or more of the following individualized dose reduction techniques were utilized for this examination: 1. Automated exposure control. 2. Adjustment of the mA and/or kV according to patient size. 3. Use of iterative reconstruction technique. COMPARISON: 12/02/2020. FINDINGS: There has been no significant change in the size or attenuation of a suspected mixed acute on subacute subdural hematoma along the right cerebral convexity measuring 1.6 cm in maximum thickness. There is linear hyperdensity within increased left frontal extra-axial space which is not typical in appearance for a cortical vessel and likely due to a stable acute on chronic subdural hematoma measuring 0.6 mm in thickness. There is no mass effect or midline shift. There is no hydrocephalus. There is encephalomalacia within the anterior inferior right frontal lobe and right temporal lobe likely due to the sequela of remote trauma, or less likely, chronic infarction. There are scattered areas of hypodensity within the cerebral white matter, likely due to chronic small vessel disease. There is volume loss. The orbits and visualized paranasal sinuses mastoid air cells are unremarkable. IMPRESSION: 1. No significant change in a suspected acute on subacute subdural hematoma along the right cerebral convexity measuring 1.6 cm and suspected small acute on chronic subdural hematoma along the left cerebral convexity measuring 0.6 mm. There is no mass effect or midline shift. 2. Encephalomalacia within the right frontal and temporal lobes, the distribution of which favors changes due to remote trauma. The possibility of changes due to chronic infarction is not completely excluded. 3. Bilateral cerebral white matter changes, likely due to chronic small vessel disease. 4. Cerebral volume loss. Electronically signed by: Suellen Tamez MD (12/03/2020 9:13 AM) [id number] Discharge Information Condition at Discharge: Improved Follow Up: Weeks Disposition/Orders: D/C to Another Facility Scheduled Amlodipine Besylate (Amlodipine Besylate) 5 Mg Tablet, 5 MG PO DAILY, (Reported) Entered as Reported by: SELAM CASPER on 12/02/201833 Last Action: Continued on 12/03/201107 by KITTY AMARO MD Atorvastatin Calcium (Atorvastatin Calcium) 40 Mg Tablet, 40 MG PO HS for FOR CHOLESTEROL, #30 Ref 0 (Reported) Entered as Reported by: SELAM CASPER on 12/02/201833 Last Action: Continued on 12/03/201107 by KITTY AMARO MD Benztropine Mesylate (Benztropine Mesylate) 1 Mg Tablet, 1 MG PO DAILY, (Reported) Entered as Reported by: SELAM CASPER on 12/02/201833 Last Action: Continued on 12/03/201107 by KITTY AMARO MD Calcium Carbonate (Calcium Carbonate) 600 Mg Tablet, 600 MG PO DAILY for VITAMIN, (Reported) Entered as Reported by: ROX COLON on 04/20/19623 Last Action: Reviewed on 12/02/201827 by SELAM CASPER Docusate Sodium (Docusate Sodium) 100 Mg Capsule, 1 CAP PO DAILY for NA, #30 (Reported) Entered as Reported by: ROX COLON on 04/20/19623 Last Action: Continued on 12/03/201107 by KITTY AMARO MD Fluoxetine Hcl (Fluoxetine Hcl) 20 Mg Capsule, 1 CAP PO DAILY, #90 Ref 1 (Reported) Entered as Reported by: SELAM CASPER on 12/02/201833 Last Action: Continued on 12/03/201107 by KITTY AMARO MD Lamotrigine (Lamictal) 100 Mg Tablet, 300 MG PO DAILY for NA, (Reported) Entered as Reported by: ROX COLON on 04/20/19623 Last Action: Continued on 12/03/201107 by KITTY AMARO MD Levothyroxine Sodium (Levothyroxine Sodium) 25 Mcg Tablet, 1 TAB PO DAILY, #30 Ref 5 (Reported) Entered as Reported by: SELAM CASPER on 12/02/201833 Last Action: Continued on 12/03/201107 by KITTY AMARO MD Melatonin (Melatonin) 3 Mg Tablet, 2 TAB PO QHS, #30 Ref 2 (Reported) Entered as Reported by: SELAM CASPER on 12/02/201833 Last Action: New Order on 12/02/201833 by SELAM CASPER Omeprazole (Omeprazole) 20 Mg Capsule.dr, 1 CAP PO DAILY for GERD, #30 Ref 5 (Reported) Entered as Reported by: ROX COLON on 04/20/19623 Last Action: Converted on 12/03/201108 by KITTY AMARO MD Ondansetron Hcl (Ondansetron Hcl) 4 Mg Tablet, 1 TAB PO PRN Q6HRS, #10 Ref 1 (Reported) Entered as Reported by: SELAM CASPER on 12/02/201833 Last Action: Converted on 12/03/201108 by KITTY AMARO MD Trazodone Hcl (Trazodone Hcl) 50 Mg Tablet, 1 TAB PO QHS, #30 Ref 1 (Reported) Entered as Reported by: SELAM CASPER on 12/02/201833 Last Action: Continued on 12/03/201108 by KITTY AMARO MD Scheduled PRN Acetaminophen (Acetaminophen) 325 Mg Tablet, 2 TAB PO Q6HRS PRN for pain or fever for 30 Days, #30 Ref 0 (Reported) Entered as Reported by: SELAM CASPER on 12/02/201833 Last Action: Continued on 12/03/201107 by KITTY AMARO MD Polyethylene Glycol 3350 (Miralax) 17 Gm Powd.pack, 1 PACKET PO PRN DAILY PRN for CONSTIPATION for 2 Days, Ref 0 (Reported) dissolve in water Entered as Reported by: SELAM CASPER on 12/02/201833 Last Action: Continued on 12/03/201107 by KITTY AMARO MD Justicifation of Admission Dx: Justifications for Admission: Justification of Admission Dx: Yes Comments: Subdural hematoma AMANDA LONGO MD Dec 05, 2020 14:48
[2020-12-05 15:00] VITALS: BP 109/59
--- NOTE | 2020-12-05 16:25 | NUR ---
Discharge Note: CARLTON LUGO Discharge instructions and discharge home medications reviewed with Other facility and a copy given. All questions have been answered and understanding verbalized. Report given to NANCY Lopez at [facility]. The following instructions and handouts were given: information about plan of care, medications, activity, diet, imaging, follow up appointments, etc. Discontinued lines and drains: IV line in left AC removed, catheter tip intact. 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
== END 2020-12-05 16:25 | DRG 87 ==
LOC: ER 07:43 → UNDOADMIN 11:41 → CVICU 11:41 → ED HOLD 11:41 → CVICU 12-03 00:10 → ED HOLD 12-03 00:10 → CVICU 12-04 18:25 → 4 NORTH 12-04 18:25 → UNDODISIN 12-05 16:25
PROVIDERS: ADMIT Internal Medicine; ATTEND Internal Medicine
DX: S06.5X0A Traumatic subdural hemorrhage without loss of consciousness, initial encounter (principal); F07.81 Postconcussional syndrome; F20.9 Schizophrenia, unspecified; G20 Parkinson's disease; Z82.0 Family history of epilepsy and other diseases of the nervous system; W01.0XXA Fall on same level from slipping, tripping and stumbling without subsequent striking against object, initial encounter; Y93.89 Activity, other specified; Y92.89 Other specified places as the place of occurrence of the external cause; Y99.8 Other external cause status; Z20.822 Contact with and (suspected) exposure to COVID-19
CPT/HCPCS: 36415; 70450; 72125; 80053; 81001; 85025; 87086; U0003; 99285-25; G0378

== ENCOUNTER → 2020-12-13 | Outpatient (CLI) | payer MEDICARE, OTHER ==
[2020-12-05 15:00] VITALS: BP 109/59
[~2020-12-13] MED LIST changes: +ACET325T21 PO; +AMLO-186 PO; +ATOR40TA59 PO; +BENZ1TAB5 PO; +FLUO20CA20 PO; +LEVO25TA4 PO; +MELA3TAB4 PO; +ONDA-84 PO; +POLY17PO29 PO; +TRAZ-118 PO
--- NOTE | 2020-12-13 17:32 | RAD ---
EXAM: CT Head without IV contrast INDICATION: Reason: F/U SDH / Spl. Instructions: / History: TECHNIQUE: Multi-detector row CT images were obtained of the head without the use of IV contrast. All CT scans performed at this facility utilize dose optimization techniques as appropriate to the exam, including the following: Automated exposure control and adjustment of the mA and/or KV according to patient size (this includes techniques or standardized protocols for targeted exams where dose is ind ication/reason for exam). COMPARISON: Noncontrast head CT 12/03/2020 FINDINGS: BRAIN PARENCHYMA: No evidence of acute intraparenchymal hemorrhage or infarct. Generalized parenchyma l volume loss and scattered white matter low density compatible chronic ischemic microvascular change is redemonstrated in addition to encephalomalacia in the inferior right frontal and anterior right t emporal lobes. VENTRICLES & EXTRA-AXIAL SPACES: Ventricles are within normal limits. Basilar cisterns are patent. T he known subdural hematoma over the right cerebral hemisphere is decreased slightly thickness and den sity, now measuring up to 11 mm in maximum depth as measured over the right parietal lobe. Renal hemorrhage is apparent. ORBITS: Orbital contents are unremarkable. SINUSES: Visualized paranasal sinuses and mastoid air cells are clear. OSSEOUS & SOFT TISSUES: Calvarium and skull base are intact. Stapled scalp laceration is present quinn r the left frontoparietal vertex. IMPRESSION: Decreasing subacute right subdural hematoma, now measuring 11 mm depth with no new hemorrhage or othe r acute intracranial process. Electronically signed by: Maddie Salmeron MD (12/13/2020 5:30 PM) [id number]
== END ==
LOC: CT 11:12
PROVIDERS: ATTEND Neurological Surgery
DX: S06.5X9A Traumatic subdural hemorrhage with loss of consciousness of unspecified duration, initial encounter (principal); X58.XXXA Exposure to other specified factors, initial encounter; Y93.89 Activity, other specified; Y92.89 Other specified places as the place of occurrence of the external cause; Y99.8 Other external cause status
CPT/HCPCS: 70450

== ENCOUNTER → 2020-12-26 | Outpatient (CLI) | payer MEDICARE, OTHER ==
[2020-12-05 15:00] VITALS: BP 109/59
--- NOTE | 2020-12-26 10:42 | RAD ---
EXAM: CT HEAD WITHOUT CONTRAST. HISTORY: Subdural hematoma. TECHNIQUE: Computed tomography of the head was performed without intravenous contrast. One or more of the following individualized dose reduction techniques were utilized for this examination: 1. Automated exposure control. 2. Adjustment of the mA and/or kV according to patient size. 3. Use of iterative reconstruction technique. COMPARISON: 12/13/2020. FINDINGS: The small right frontal subdural hematoma has decreased in size and attenuation. It now farhad sures approximately 3-4 mm in greatest thickness. There is no significant leftward midline shift. A s mall amount of left frontal subdural clot also persists, measuring 2 mm in thickness. A subacute to chronic infarct is again noted within the right inferior frontal lobe. There is modera te chronic microangiopathic white matter change elsewhere. Prominence of the lateral ventricles and h emispheric sulci indicates moderate atrophy. There is mild mucosal thickening in the right maxillary sinus. The orbits are unremarkable. The tempo ral bones are unremarkable. The calvarium reveals no suspicious lesions. There are atherosclerotic ca lcifications of the internal carotid arteries. IMPRESSION: 1. Slight interval decrease in a right frontal subdural hematoma. 2. Stable trace left frontal subdural hematoma. 3. Chronic right frontal infarct. Moderate atrophy and chronic microangiopathic white matter change. Electronically signed by: Siomara Jimenez MD (12/26/2020 10:40 AM) [id number]
== END ==
LOC: CT 10:18
PROVIDERS: ATTEND Neurological Surgery
DX: S06.5X9A Traumatic subdural hemorrhage with loss of consciousness of unspecified duration, initial encounter (principal); X58.XXXA Exposure to other specified factors, initial encounter; Y93.89 Activity, other specified; Y92.89 Other specified places as the place of occurrence of the external cause; Y99.8 Other external cause status
CPT/HCPCS: 70450

== ENCOUNTER 2022-02-06 08:16 | Emergency (ER) | payer MEDICARE, OTHER ==
[~2022-02-06] VITALS: Ht 157.5 cm; Wt 146.2 kg
[~2022-02-06 08:16] MED LIST changes: -FLUO20CA20 PO; +FLUO20CA22 PO
--- NOTE | 2022-02-06 08:34 | PHYS DOC ---
Past Medical History Past Medical History: Schizophrenia Additional Past Medical Histor: encephalopathy, freq falls, post concussional syndrome, subdural hem, parki Past Surgical History: Other Additional Past Surgical Histo: unkown. Smoking Status: Unknown if ever smoked Alcohol Use: None General Adult EDM: Chief Complaint: MECHANICAL FALL HPI: HPI: Patient is a 66 year old female who was brought here by EMS from custodial after she fell this morning. Patient complained of right hip pain, right ankle pain. Patient says she was walking outside at the custodial to smoke when she slipped on the ice. Patient denies any head or neck injury. Patient denies any back pain, no upper extremity pain. Patient is not on any blood thinners. Patient denies any knee pain Review of Systems: Review of Systems: Constitutional: Denies fever or chills. [] Eyes: Denies change in visual acuity. [] HENT: Denies nasal congestion or sore throat. [] Respiratory: Denies cough or shortness of breath. [] Cardiovascular: Denies chest pain or edema. [] GI: Denies abdominal pain, nausea, vomiting, bloody stools or diarrhea. [] : Denies dysuria. [] Musculoskeletal: Denies back pain, positive for right ankle pain, right hip pain. Integument: Denies rash. [] Neurologic: Denies headache, focal weakness or sensory changes. [] Endocrine: Denies polyuria or polydipsia. [] Lymphatic: Denies swollen glands. [] Psychiatric: Denies depression or anxiety. [] Heart Score: C/O Chest Pain: N/A Risk Factors: Risk Factors: DM, Current or recent (<one month) smoker, HTN, HLP, family history of CAD, obesity. Risk Scores: Score 0 - 3: 2.5% MACE over next 6 weeks - Discharge Home Score 4 - 6: 20.3% MACE over next 6 weeks - Admit for Clinical Observation Score 7 - 10: 72.7% MACE over next 6 weeks - Early Invasive Strategies Allergies: Allergies: Allergies Coded Allergies Type Severity Reaction Last Updated Verified No Known Drug Allergies 02/06/22 No Physical Exam: PE: Constitutional: Well developed, well nourished, no acute distress, non-toxic appearance. [] HENT: Normocephalic, atraumatic, bilateral external ears normal, oropharynx moist, no oral exudates, nose normal. [] Eyes: PERRLA, EOMI, conjunctiva normal, no discharge. [] Neck: Normal range of motion, no tenderness, supple, no stridor. [] Cardiovascular:Heart rate regular rhythm, no murmur [] Lungs & Thorax: Bilateral breath sounds clear to auscultation [] Abdomen: Bowel sounds normal, soft, no tenderness, no masses, no pulsatile masses. [] Skin: Warm, dry, no erythema, no rash. [] Back: No tenderness, no CVA tenderness. [] Extremities: Right ankle is swollen and tender at the lateral malleolus area, no open wound. There is no tenderness to palpation along the right leg, right knee area. Right hip is tender to palpation. No deformity noted Neurologic: Alert and oriented X 3, normal motor function, normal sensory function, no focal deficits noted. [] Psychologic: Affect normal, judgement normal, mood normal. [] EKG: EKG: [] Radiology/Procedures: Radiology/Procedures: [][address] [address] IMAGING REPORT Signed PATIENT: CARLTON LUGO ACCOUNT: [id number] : 1955 LOCATION: ER AGE: 66 SEX: F EXAM STATUS: PRE ER ORD. PHYSICIAN: DARCI GARCIA DO REASON: RIGHT ANKLE PAIN, FELL PROCEDURE: ANKLE RIGHT 3V Right ANKLE AP, LATERAL, OBLIQUE Clinical Indication: Reason: RIGHT ANKLE PAIN, FELL / Spl. Instructions: / History: Comparison: None. Findings: There is acute traumatic fracture of the distal fibular metadiaphysis. The distal fracture fragment is laterally and posteriorly displaced approximately 1 mm. There is lateral ankle soft tissue swelling. Mineralization is normal. The ankle mortise is intact. IMPRESSION: Acute traumatic fracture of the distal fibula. Electronically signed by: Earnest Pederson MD (02/06/2022 9:01 AM) [id number] DICTATED and SIGNED BY: EARNEST PEDERSON MD DATE: 02/06/22 [id number] [address] [address] IMAGING REPORT Signed PATIENT: CARLTON LUGO ACCOUNT: [id number] : 1955 LOCATION: ER AGE: 66 SEX: F EXAM STATUS: PRE ER ORD. PHYSICIAN: DARCI GARCIA DO REASON: RIGHT HIP PAIN, FELL PROCEDURE: HIP RIGHT 2V WITH PELVIS RIGHT HIP AP AND LATERAL, AP PELVIS Clinical Indication: Reason: RIGHT HIP PAIN, FELL / Comparison: None. Findings: There is no acute fracture or dislocation of the right hip. There is no acute pelvic fracture. There is mild arthropathy of the bilateral hips. There are tiny phleboliths in the pelvis. There is no soft tissue abnormality or radiopaque foreign body. IMPRESSION: No acute fracture or dislocation. Electronically signed by: Earnest Pederson MD (02/06/2022 8:59 AM) [id number] DICTATED and SIGNED BY: EARNEST PEDERSON MD DATE: 02/06/22 [id number] Splinting Procedure: POSTERIOR SHORT LEG WITH STIRRUP Indication: RIGHT ANKLE FRACTURE Splint was done by: THIS PHYSICIAN Method: POSTERIOR SHORT LEG WITH STIRRUP Material:ORTHOGLASS MATERIAL Post Splinting exam was done by this physician, capillary refill of the affected extremity was less than 2 seconds, no focal neurovascular deficit. No evidence of compartment syndrome. Complication : none, patient tolerated procedure well. Course & Med Decision Making: Course & Med Decision Making Pertinent Labs and Imaging studies reviewed. (See chart for details) Patient is a 66-year-old female who fell today, broke her right ankle. The fracture was splinted and stabilized with Posterior short leg with stirrup. Patient will be discharged home with pain medication and crutches, discussed with CELSO Lugo for Dr. Christine Hawk, orthopedic surgeon on-call will follow up with her in the clinic. William Disclaimer: William Disclaimer: This electronic medical record was generated, in whole or in part, using a voice recognition dictation system. Departure Departure Impression: Primary Impression: Ankle fracture, lateral malleolus, closed Disposition: 01 HOME / SELF CARE / HOMELESS Condition: IMPROVED Referrals: MIKE HERRERA (PCP) Please Follow up with Dr. CHRISTINE HAWK, ORTHOPEDIC SURGEON next week. [facility] Located on the [facility] [address], [address] [place], [place] [id number] Patient Instructions: Ankle Fracture with [facility] Additional Instructions: Please call Dr. CHRISTINE HAWK, ORTHOPEDIC SURGEON FOR FOLLOW UP NEXT WEEK. NO WEIGHTBEARING. USE CRUTCHES. [facility] [address] [place] [address], [address] [place], [place] [id number] [place] Located on the [address] [place] [address] [place] Located on the campus of [facility] [address], [address] [place] [address] Scripts Hydrocodone Bit/Acetaminophen (HYDROCODONE-APAP 5-325 ) 1 Tab Tablet 1 TAB PO PRN Q6HRS PRN for PAIN, #15 TAB 0 Refills Prov: DARCI GARCIA DO 02/06/22 [cr] No Conflict Check Prov: DARCI GARCIA DO 02/06/22 DARCI GARCIA DO Feb 06, 2022 08:34
--- NOTE | 2022-02-06 09:02 | RAD ---
RIGHT HIP AP AND LATERAL, AP PELVIS Clinical Indication: Reason: RIGHT HIP PAIN, FELL / Comparison: None. Findings: There is no acute fracture or dislocation of the right hip. There is no acute pelvic fracture. There is mild arthropathy of the bilateral hips. There are tiny phleboliths in the pelvis. There is no soft tissue abnormality or radiopaque foreign b maria guadalupe. IMPRESSION: No acute fracture or dislocation. Electronically signed by: Earnest Pederson MD (02/06/2022 8:59 AM) [id number]
--- NOTE | 2022-02-06 09:04 | RAD ---
Right ANKLE AP, LATERAL, OBLIQUE Clinical Indication: Reason: RIGHT ANKLE PAIN, FELL / Spl. Instructions: / History: Comparison: None. Findings: There is acute traumatic fracture of the distal fibular metadiaphysis. The distal fracture fragment i s laterally and posteriorly displaced approximately 1 mm. There is lateral ankle soft tissue swelling . Mineralization is normal. The ankle mortise is intact. IMPRESSION: Acute traumatic fracture of the distal fibula. Electronically signed by: Earnest Pederson MD (02/06/2022 9:01 AM) [id number]
[2022-02-06] MEDS ORDERED: HYDR-2761 PO (09:57)
[2022-02-06] MEDS ORDERED: [UNRECOGNIZED DRUG - OTHER] (09:57)
[2022-02-06 10:11] VITALS: BP 164/78
== END 2022-02-06 10:49 | disposition home or self-care (01) ==
LOC: ER 08:16
DX: S82.61XA Displaced fracture of lateral malleolus of right fibula, initial encounter for closed fracture (principal); F20.9 Schizophrenia, unspecified; W18.39XA Other fall on same level, initial encounter; Y93.01 Activity, walking, marching and hiking; Y92.128 Other place in nursing home as the place of occurrence of the external cause; Y99.8 Other external cause status
CPT/HCPCS: 29515; 73502; 73610; 99284-25